=== PATIENT | female | born 1965 | race Caucasian/White ===

== ENCOUNTER 2018-11-04 18:11 | Emergency (ER) | payer SELFPAY | END 2018-11-04 19:31 | disposition home or self-care (01) | LOC: ERS 18:11 | DX: G47.9 Sleep disorder, unspecified (principal); M79.89 Other specified soft tissue disorders; T43.225A Adverse effect of selective serotonin reuptake inhibitors, initial encounter; T43.595A Adverse effect of other antipsychotics and neuroleptics, initial encounter; F31.9 Bipolar disorder, unspecified; I10 Essential (primary) hypertension; E03.9 Hypothyroidism, unspecified | CPT/HCPCS: 99283 ==